=== PATIENT | male | born 2000 | race African-American/Black ===

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

== ENCOUNTER 2020-06-27 14:21 | Emergency (ER) | payer OTHER ==
[~2020-06-27] VITALS: Ht 188 cm; Wt 82.0 kg
[2020-06-27 14:24] VITALS: BP 140/66
== END 2020-06-27 15:50 | disposition left against medical advice (07) ==
LOC: ER 14:21
DX: Z53.21 Procedure and treatment not carried out due to patient leaving prior to being seen by health care provider (principal)

== ENCOUNTER 2020-06-28 09:52 | Emergency (ER) | payer OTHER ==
[~2020-06-28] VITALS: Ht 185.4 cm; Wt 116.0 kg
[2020-06-28] MEDS ORDERED: IBUPROFEN 600MG TABLET PO ONE (10:45)
[2020-06-28 11:51] VITALS: BP 123/66
== END 2020-06-28 11:53 | disposition home or self-care (01) ==
LOC: ER 10:03
DX: M79.641 Pain in right hand (principal)
CPT/HCPCS: 73130; 99283